=== PATIENT | female | born 1975 | race American Indian/Alaskan Native ===

== ENCOUNTER 2021-01-26 11:40 | Outpatient (CLI) | payer OTHER | END 2021-01-26 12:36 | disposition home or self-care (01) | LOC: NST 11:40 | PROVIDERS: ATTEND Obstetrics & Gynecology Maternal & Fetal Medicine | DX: Z34.83 Encounter for supervision of other normal pregnancy, third trimester (principal) ==

== ENCOUNTER 2021-03-15 14:07 | Outpatient (CLI) | payer OTHER | END 2021-03-15 16:04 | disposition home or self-care (01) | LOC: NST 14:07 | PROVIDERS: ATTEND Obstetrics & Gynecology | DX: Z34.83 Encounter for supervision of other normal pregnancy, third trimester (principal) ==

== ENCOUNTER 2021-03-29 09:00 | Inpatient (IN) | payer OTHER ==
[~2021-03-29] VITALS: Ht 149.9 cm; Wt 68.0 kg
[2021-03-31] MEDS ORDERED: PRENATAL TABLE1 EAC1 PO (19:38)
[2021-03-31] MEDS ORDERED: PROMETRIUM200 MG VAG (19:38)
[2021-03-31] MEDS ORDERED: ASA81 MG PO (19:38)
[2021-04-02] MEDS ORDERED: KETO10TA2 PO (07:44)
[2021-04-02] MEDS ORDERED: OXYC1TAB9 PO (07:44)
== END 2021-04-02 10:06 | disposition home or self-care (01) | DRG 788 ==
LOC: LDR 03-31 19:13 → SURG-SUITE 03-31 19:13 → O/R 03-31 19:13 → SURG-SUITE 03-31 21:18 → LDR 04-11 09:00
PROVIDERS: ADMIT Obstetrics & Gynecology; ATTEND Obstetrics & Gynecology
PROC: 4A1HXFZ Monitoring of Products of Conception, Cardiac Rhythm, External Approach (ICD-10-PCS; 2021-03-31)
PROC: 10D00Z1 Extraction of Products of Conception, Low, Open Approach (ICD-10-PCS; principal; 2021-03-31 20:00)
DX: O34.211 Maternal care for low transverse scar from previous cesarean delivery (principal); O75.82 Onset (spontaneous) of labor after 37 completed weeks of gestation but before 39 completed weeks gestation, with delivery by (planned) cesarean section; O24.420 Gestational diabetes mellitus in childbirth, diet controlled; Z37.0 Single live birth; Z3A.38 38 weeks gestation of pregnancy; Z20.822 Contact with and (suspected) exposure to COVID-19